=== PATIENT | female | born 1990 | race Caucasian/White ===

== ENCOUNTER 2025-04-18 11:34 | Emergency (ER) | payer SELFPAY ==
[2025-04-18 13:41] LABS: Bacteria/HPF None Seen HPF (None Seen); CAUTI Indications for Culture Alt mental st,lethar; Glucose, Urine (Dipstick) 500 mg/dL (Negative); Leukocyte Negative Leu/uL (Negative); Protein, Urine (Dipstick) 100 mg/dL (Neg-Trace); RBC/HPF 0-3 HPF (0-3); Specific Gravity, Urine 1.006 (1.002-1.036); WBC/HPF 0-3 HPF (0-3)
[2025-04-18 13:43] LABS: Urine Culture Reflex No No
[2025-04-18 13:49] LABS: Cocaine Metabolite Screen Negative (Negative); THC/Cannabinoid Screen Negative (Negative); Tricyclic Screen Negative (Negative)
== END 2025-04-18 15:52 | disposition left against medical advice (07) ==
LOC: EDBD 11:34 → ERS 11:34
DX: E16.2 Hypoglycemia, unspecified (principal)
CPT/HCPCS: 36416; 70450; 71045; 80306; 81001; 96374; J2060